=== PATIENT | female | born 1970 | race Caucasian/White ===

== ENCOUNTER → 2019-01-28 | Outpatient (CLI) | payer OTHER ==
--- NOTE | 2019-01-29 10:40 | REP ---
Right elbow five views : There is no fracture or dislocation. Mineralization and joint spaces are normal. There are no calcifications or foreign bodies. Impression: Negative right elbow . Electronically Signed by Norm Donis MD 01/28/2019 02:27 P
--- NOTE | 2019-01-29 10:41 | REP ---
Right shoulder four views : There is no fracture or dislocation. Mineralization and joint spaces are normal. There are no calcifications or foreign bodies. Impression: Negative right shoulder . Electronically Signed by Norm Donis MD 01/28/2019 02:30 P
== END ==
LOC: M LRY 14:06
PROVIDERS: ATTEND Physician Assistant
DX: S59.901A Unspecified injury of right elbow, initial encounter (principal); S49.91XA Unspecified injury of right shoulder and upper arm, initial encounter; X58.XXXA Exposure to other specified factors, initial encounter; Y92.9 Unspecified place or not applicable
CPT/HCPCS: 73030; 73080; 96372; G0463; J1885